=== PATIENT | male | born 1950 | race Caucasian/White ===

== ENCOUNTER → 2020-09-03 | Outpatient (CLI) | payer MEDICARE, BC ==
[~2020-09-03] MED LIST: NONE PER PT
== END | disposition home or self-care (01) ==
LOC: STAR 11:16
PROVIDERS: ATTEND Surgery
DX: Z01.812 Encounter for preprocedural laboratory examination (principal); Z20.828 Contact with and (suspected) exposure to other viral communicable diseases; K40.90 Unilateral inguinal hernia, without obstruction or gangrene, not specified as recurrent
CPT/HCPCS: 36415; 87635; 93005

== ENCOUNTER 2020-09-08 07:01 | Day surgery (SDC) | payer MEDICARE, BC ==
[~2020-09-08] VITALS: Ht 170.2 cm; Wt 80.6 kg
[~2020-09-08 07:01] MED LIST changes: +BUPIVACAINE/PF 0.5% ONE; +EPINEPHRINE 1 MG/ML, 1ML ONE
[2020-09-08] MEDS ORDERED: CHLORHEXIDINE 15 ML UDC MM ONE (07:30)
[2020-09-08] MEDS ORDERED: LACTATED RINGERS 1,000 ML IV SCH (07:30)
[2020-09-08 07:32] VITALS: BP 139/72
[2020-09-08] MEDS ORDERED: MIDAZOLAM 1 MG/ML, 2ML ONE (09:07)
[2020-09-08] MEDS ORDERED: FENTANYL PF 250 MCG/5ML ONE (09:08)
[2020-09-08] MEDS ORDERED: PROPOFOL 10 MG/ML, 20ML ONE (09:22)
[2020-09-08] MEDS ORDERED: SUGAMMADEX 200 MG/2 ML IVPush ONE (09:22)
[2020-09-08] MEDS ORDERED: SUCCINYLCHOLINE 20 MG/ML, 10ML ONE (09:22)
[2020-09-08] MEDS ORDERED: ONDANSETRON 2MG/ML, 2ML ONE ×2 (09:22→11:31)
[2020-09-08] MEDS ORDERED: ROCURONIUM 10 MG/ML,10ML ONE (09:22)
[2020-09-08] MEDS ORDERED: DEXAMETHASONE 4 MG/ML, 1ML ONE (09:22)
[2020-09-08] MEDS ORDERED: CEFAZOLIN 1,000 MG ONE (09:22)
[2020-09-08] MEDS ORDERED: METOCLOPRAMIDE 5 MG/ML, 2ML IV PRN (10:00)
[2020-09-08] MEDS ORDERED: hydrALAzine 20 MG/ML, 1ML IV PRN (10:00)
[2020-09-08] MEDS ORDERED: PROMETHAZINE 25 MG/ML, 1ML IV PRN (10:00)
[2020-09-08] MEDS ORDERED: ALBUTEROL SULFATE 2.5 MG/3 ML NPPB PRN (10:00)
[2020-09-08] MEDS ORDERED: DIAZEPAM 5 MG/ML, 2ML IV PRN ×2 (10:00)
[2020-09-08] MEDS ORDERED: OXYcodone 5 MG/5 ML ORAL.SOL UDC PO PRN (10:00)
[2020-09-08] MEDS ORDERED: LABETALOL 5MG/ML, 20ML IV PRN (10:00)
[2020-09-08] MEDS ORDERED: KETOROLAC 30 MG/1 ML IV PRN (10:00)
[2020-09-08] MEDS ORDERED: ONDANSETRON 2MG/ML, 2ML IVPush PRN (10:00)
[2020-09-08] MEDS ORDERED: MEPERIDINE/PF 25MG/0.5ML IVPush PRN (10:00)
[2020-09-08] MEDS ORDERED: FENTANYL PF 100 MCG/2ML ONE ×2 (11:20→11:38)
[2020-09-08] MEDS ORDERED: OXYcodone 5 MG/5 ML ORAL.SOL UDC ONE (11:20)
[2020-09-08] MEDS: FENTANYL PF 100 MCG/2ML IV PRN ×4 (11:30→11:48)
[2020-09-08] MEDS ORDERED: HYDROmorphone 1 MG/ML, 1ML INJ ONE (11:49)
[2020-09-08] MEDS: HYDROmorphone 1 MG/ML, 1ML INJ IV PRN ×4 (11:55→12:15)
== END 2020-09-08 15:35 | disposition home or self-care (01) ==
LOC: OUT 07:01
PROVIDERS: ATTEND Surgery
DX: K40.30 Unilateral inguinal hernia, with obstruction, without gangrene, not specified as recurrent (principal); D17.6 Benign lipomatous neoplasm of spermatic cord; N40.0 Benign prostatic hyperplasia without lower urinary tract symptoms; Z79.899 Other long term (current) drug therapy; Z98.890 Other specified postprocedural states; Z82.49 Family history of ischemic heart disease and other diseases of the circulatory system; Z83.3 Family history of diabetes mellitus; Z80.9 Family history of malignant neoplasm, unspecified
CPT/HCPCS: 49650; C1781; J0171; J0330; J0690; J1100; J1170; J2250; J2405; J2704; J3010; J7120